=== PATIENT | male | born 1980 | race Caucasian/White ===

== ENCOUNTER 2017-04-30 10:01 | Observation (INO) | payer OTHER ==
--- NOTE | 2017-04-26 09:03 | PDGENHP ---
History and Physical - Chief Complaint Right Hip Pain - History of Present Illness Diagnosis: 1. Bilateral~Femoroacetabular impingement (ESTRELLA) Mixed type, with~resultant labral tear, R >> symptoms than L 2. Bilateral~Early Osteoarthritis HISTORY OF PRESENT ILLNESS: Kirtiis a 37 y.o.~~~active male~who I have had the pleasure to consult on today. I have enjoyed meeting him. He~lives in [place], [place]. 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 ~He~is ; he~has 1~child (5 yo girl). ~Earnest Ninoenjoys taking care of his daughter, travelling internationally - does not play sports anymore because of hips (was soccer). Earnest's right~hip pain started 2013, with some~recalled trauma or injury, and with no~previous complaints. Kiritdoes not have~a known history of hip dysplasia. Got better for about 2 years, but now with weight gain has increased pain. R hip is more painful than L, but L is "annoying". Originally saw in 2013 for R hip and did PT at that time. Presentation today is of anterior bilateral~hip pain - in the groin. ~The hip does not~wake him~at night and does~click and catch on him. Sitting can be uncomfortable~for him. Kirtidoes~report suffering from lower back pain episodes. Kirtihas~participated in physical therapy and has not~tried other conservative measures including. He~has~not received sufficient symptomatic improvement. Kirtihas not~utilized medication for pain management. Kirtihas used medication for 2 weeks~- percocet and tramadol - but these are for his back ( being treated for LBP by Dr. Prince) Kirtiunderstands that he~has a hip and pelvis problem which should be researched and wishes to get a better understanding of his~hip status, followed by an establishment of a treatment strategy, hoping he~would be able to get back to his~well being active life. History: Past medical history: ~ Patient ~has a past medical history of Allergy and Anxiety. He also has no past medical history of Asthma; Blood transfusion; CHF (congestive heart failure) ( HC code); Emphysema of lung (HC code); Heart murmur; Immune deficiency disorder (HC code); Meningitis; Myocardial infarction; Sickle cell anemia (HC code); Tuberculosis; or Ulcer (HC code). Relevant familial history: None which is relevant Past surgical history: R knee scope - meniscal debridement, R ankle ORIF, sinus surgery. Kirtidenies problematic issues with general anesthesia in the past. I have reviewed, verified and agree with the past medical, surgical, family and social history. Current Medications:~has a current medication list which includes the following prescription(s): alprazolam, amoxicillin-clavulanate, cephalexin, diclofenac sodium 1%, meloxicam, multivitamin, oxycodone-acetaminophen, and tramadol. ALLERGIES:~is allergic to no known drug allergies. Objective: Physical Examination: Kirtiis 5~feet 11~inches tall and weighs 238~Lbs. Kirtiis AAO x3; he~is well -nourished, in NAD. Skin is warm and dry. ~Breathing is non-labored. ~CV with RRR by pulse. Abdomen is soft, NTND. Currently, he~walks with a normal~gait. Trendelenburg sign is negative~and proprioception is reduced, both~sides. He~presents with no~signs of joint laxity. Beightons Score: 0 Not active looking. Lower spine examination is negative~for sciatic or femoral nerve irritation with negative~SLR &~femoral stretch tests. Range of motion of the spine is normal~for flexion, extension, and rotations,~with~associated pain. Strength, Sensation and pulses are normal - bilaterally Ankles and knees exams are normal~and no~mal-alignment is evident. He~has~left~0.5~cm short leg length discrepancy. Thigh circumference is symmetric~with no evidence for muscle atrophy~on both~ sides. Hip ROM (degrees): FL ER At 90~hip FL IR At 90~hip FL AB AD EX IR Neutral hip ER Neutral hip R 90 40 5 35 5 5 30 45 L 90 40 5 35 5 5 30 45 Specific hip and pelvis tests: Impingement Test COOKIE Roll Add. Longus R +++ +++ Negative Negative L +++ +++ Negative ++ Glut. Med ITB Posterior Imp R Negative 4+/5 strength Negative 4+/5 strength +++ L Negative 4+/5 strength Negative 5/5 strength +++ Squeeze test measured normal Bony Symphysis pubis is painful~to touch while concentric activity of the rectus abdominis, does not~produce pain at its insertion. Ilio Psos specific tests are negative for pain during cycling for both hips HF has no pain both hips. Anterior and lateral~capsule tenderness bilaterally. Greater trochanteric burse is painful~on both hips. Piriformis tests: FAIR is negative, with no~local signs of neuritis related to sciatic nerve. SIJs examination is produces pain on both sides~with normal~COOKIE in relation and local tenderness. Hamstrings tests are positive~functional contraction and positive~tendinopathy the left hip. On a daily basis, the following percentages reflect Earnest's overall total pain: Deep hip: 65% Greater troch: 15% SI: 20% Imaging: Radiology studies which I have personally reviewed, analyzed and measured are below: XR: AP of the hip and pelvis: Performed in a good~technique Coccyx to pubic symphysis distance 1.3~cm. 5~degrees caudal [place] Lines are preserved. No~Pathological signs are seen in the Symphysis Pubis. No~Pathological signs are seen at the Ischial tuberosity. ~ Compared to XR AP Pelvis taken on 01/13/14 - shows no significant progression in joint space narrowing or other significant differences. ~ Specific measurements show: NSA~ LCE Sourcil~Angle Sharp's angle Lat. Cam Lat. Pincer C.Over~sign Head~Coverage % ATDmm R 149 39 2 41 N + N 83 + L 146 43 -1 35 N + 11 o'clock 87 + Pos. wall sign ISS NAD ~~Dysplasia Comments R Negative Negative 21 mm Negative L Negative Negative 13 mm Negative Sclerosis Sup. Lat. OA Cysts Joint Space-WBZ Joint Space-Medial R ++ + Negative 2.8~mm 4.1~mm L + + + 2.8 mm 4.2~mm X Table lateral: Anterior cam lesion is seen~on both hips. Alpha Angle: ~ Right 61~dergrees Left 69~degrees MRI R hip shows: 12/27/16 - Femoral acetabular impingement, right hip, mixed type, with secondary nondisplaced tear of the anterior superior acetabular labrum. Small pincer type labrum, sub chondral cyst. MRI L hip shows: 12/27/16 - Femoral acetabular impingement, left hip, mixed type. Associated degenerative maceration and partial tearing with chondral thinning anterior superior left hip joint. Small pincer type labrum, sub chondral cyst. Impression and plan: Kirtiis a 37 y.o.~active male~suffering from symptomatic bilateral (R>L) hip pain due to Bilateral~Femoroacetabular impingement (ESTRELLA) Mixed type, and early OA causing significant disability to him~and altering his~sport and life activities. Physical examination, imaging, and his~story correspond with the diagnosis mentioned above. I explained that femoroacetabular impingement (ESTRELLA) arises due to a bony or soft tissue conflict between the femur (ball) and acetabulum (socket) caused by an abnormality in the shape of the hip joint. Over time, repetitive impingement can result in damage to the labrum and adjacent surface cartilage within the socket, ultimately giving rise to progressive osteoarthritis of the hip. I explained that although a labral tear can be a source of pain, it is rarely the root of the problem and typically occurs secondary to an underlying abnormality in the shape and mechanics of the hip joint. ~ I reviewed conservative treatment options for ESTRELLA including activity modification to avoid positions of impingement, physical therapy, non-steroidal anti-inflammatory medications, and various injections (corticosteroid and PRP) aimed at reducing inflammation in the hip joint or/and preventing dynamic impingement. PRP injections may promote healing and reduce symptoms in certain cases but it will not repair chronically damaged tissue. Although these measures may help to buy time and reduce current level of symptoms, they are not a definitive solution to the problem given the underlying abnormality in the shape of the hip joint. Patients who have failed conservative management and continue to experience symptoms are candidates for hip arthroscopy, a minimally invasive surgery that can definitively address the underlying problem. Hip arthroscopy typically includes treating the labrum with either repair or reconstruction of the torn labrum; as well as addressing the underlying abnormalities by restoring the normal shape to the hip joint. ~If the cartilage is damaged a Microfracture surgical procedure may also be necessary to help stimulate the growth of fibrocartilage. ~If a patient requires a labral reconstruction or a Microfracture, the initial rehabilitation from the surgery may take longer, but the bed bug exterminator results are typically favorable. I explained that although a labral tear can be a source of pain, it is rarely the root of the problem and typically occurs secondary to an underlying abnormality in the shape and mechanics of the hip joint. Conservative management with rest, activity modification, and PRP injections may promote healing and reduce symptoms in certain cases. When these measures are inadequate , hip arthroscopy is typically performed to repair or reconstruct the torn labrum and address the underlying abnormality in the shape of the hip joint. ~ Hip arthroscopy typically includes treating the labrum with either debridement, repair, or reconstruction of the torn labrum; as well as addressing the underlying abnormalities by restoring the normal shape to the hip joint. ~If the cartilage is damaged a Microfracture procedure may also be necessary to help stimulate the growth of fibrocartilage. ~If a patient requires a labral reconstruction or a Microfracture the initial rehabilitation from the surgery may take longer, but the bed bug exterminator results are typically favorable. We explained that a hip preservation procedure (arthroscopy)~might serve as a bridging procedure to try and buy as much time as possible, keeping his~confederated coos joint before joint replacement would be unavoidable. With that in mind, the outlined treatment options are: (1) To wait for THR utilizing pain medication, intra articular injections~(such as PRP)~and lifestyle modification (to avoid or reduce symptoms); (2) THR now as an end-point procedure understanding the life-modifications associated with this procedure regarding activity level; or (3) Hip preservation surgery, specifically hip arthroscopy, to address labral, cartilage and bony pathology (with the possibility of reconstructing the labrum if needed). This last option comes~with the understanding of what is outlined above, specifically that this may not work as it usually does with biologically more preserved joints, and that based on his~age, gender, and joint characteristics, the results are less reproducible than in younger subjects. Additionally, this surgery does~not eliminate the possibility for future THR. If the hip preservation technique fails~to yield the expected results, THR can be done promptly. HOWEVER, due to his young age and joint's status I still believe that hip preservation surgery would be the best treatment option at this stage. Earnest~will review the info presented. In order to obtain more detailed information regarding the alignment, orientation, and shape of the bony hip and pelvis I will order a CT scan to be performed. The results of the CT scan, including femoral torsion and acetabular version measured values and 3D images, will aid me in deciding on the best treatment strategy and surgical pre-planning. Earnest will return for a follow-up visit after his CT has been performed. Earnest~is happy with this plan. I have also supplied him~with handouts, outlining the expected surgical treatment and rehab involved. I wish~Earnest~all the best, ~~ Dalia Olguin MD History Information - Allergies/Home Medication List Allergies/Adverse Reactions: No Known Allergies Allergy (Unverified 04/06/17 15:26) Home Medications: NK [No Known Home Meds] 04/06/17 [Last Taken Unknown] I have personally reviewed and updated: medical history - Social History Smoking Status: Never smoked Review of Systems Review of Systems: Physical Exam Physical Exam:
[2017-04-30] MEDS ORDERED: ceFAZolin 2 GM/SWFI 2 GM/20 ML SYR IVP ONE (10:30)
[2017-04-30] MEDS ORDERED: PREGABALIN 150 MG CAP PO ONE (10:30)
[2017-04-30] MEDS ORDERED: ACETAMINOPHEN 500 MG TAB PO ONE (10:30)
[2017-04-30] MEDS ORDERED: LIDOCAINE 1% 2 ML INJ ID PRN (10:31)
[2017-04-30] MEDS ORDERED: LR 1,000 ML IV ONE (10:31)
[2017-04-30] MEDS ORDERED: BUPIVACAINE 0.25% 30 ML SDV ONE (11:43)
[2017-04-30] MEDS ORDERED: EPINEPHrine 30 MG/30 ML MDV (0.1 MG/0.1 ML) ONE (11:45)
[2017-04-30] MEDS ORDERED: MIDAZOLAM 2 MG/2 ML VIAL ONE (13:28)
[2017-04-30] MEDS ORDERED: MIDAZOLAM 2 MG/2 ML VIAL IVP ONE (13:28)
--- NOTE | 2017-04-30 13:29 | PDANEPAE ---
ANE History of Present Illness r hip pain ANE Past Medical History - Cardiovascular History Hx Hypertension: No Hx Arrhythmias: No Hx Chest Pain: No Hx Coronary Artery / Peripheral Vascular Disease: No Hx CHF / Valvular Disease: No Hx Palpitations: No - Pulmonary History Hx COPD: No Hx Asthma/Reactive Airway Disease: No Hx Recent Upper Respiratory Infection: No Hx Oxygen in Use at Home: No Hx Sleep Apnea: No Sleep Apnea Screening Result - Last Documented: Positive Pulmonary History Comment: STEVEN TRIGGERS HAS BEEN RECOMMENDED TO GET SLEEP STUDY. CHRONIC SINUSITIS - Neurologic History Hx Cerebrovascular Accident: No Hx Seizures: No Hx Dementia: No - Endocrine History Hx Diabetes: No - Renal History Hx Renal Disorders: No - Liver History Hx Hepatic Disorders: No - Neurological & Psychiatric Hx Hx Neurological and Psychiatric Disorders: No - Cancer History Hx Cancer: No - Congenital Disorder History Hx Congenital Disorders: No - GI History Hx Gastrointestinal Disorders: No - Other Health History Other Health History: CHRONIC SINUSITIS. 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 RT KNEE SCOPE. SINUS 2015 ANE Review of Systems Review of Systems: - Exercise capacity METS (RN): 4 METS ANE Patient History - Allergies Allergies/Adverse Reactions: No Known Allergies Allergy (Unverified 04/06/17 15:26) - Home Medications Home Medications: NK [No Known Home Meds] 04/06/17 [Last Taken Unknown] - NPO status NPO Since - Liquids (Date): 04/29/17 NPO Since - Liquids (Time): 19:00 NPO Since - Solids (Date): 04/29/17 NPO Since - Solids (Time): 19:00 - Smoking Hx Smoking Status: Never smoked ANE Labs/Vital Signs - Vital Signs Blood Pressure: 117/70 Heart Rate: 62 Respiratory Rate: 18 O2 Sat (%): 97 Height: 180.34 cm Weight: 104.326 kg ANE Physical Exam - Airway Neck exam: FROM Mallampati Score: Class 1 Mouth exam: normal dental/mouth exam - Pulmonary Pulmonary: no respiratory distress - Cardiovascular Cardiovascular: regular rate and rhythym - ASA Status ASA Status: I ANE Anesthesia Plan Anesthesia Plan: general endotracheal anesthesia
[2017-04-30] MEDS ORDERED: fentaNYL 100 MCG/2 ML INJ ONE ×4 (13:33→18:12)
[2017-04-30] MEDS ORDERED: LIDOCAINE 2% 5 ML SDV ONE (13:33)
[2017-04-30] MEDS ORDERED: HYDROmorphONE/DILAUDID 2 MG/ML INJ ONE ×2 (13:33→18:53)
[2017-04-30] MEDS ORDERED: DEXAMETHASONE 4 MG/ML VIAL ONE (13:33)
[2017-04-30] MEDS ORDERED: ONDANSETRON 4 MG/2 ML VIAL ONE (13:33)
[2017-04-30] MEDS ORDERED: PROPOFOL 200 MG/20 ML VIAL ONE (13:34)
[2017-04-30] MEDS ORDERED: PROPOFOL/EMULSION 500 MG/50 ML BOTTLE IV ONE (13:34)
[2017-04-30] MEDS ORDERED: ONDANSETRON 4 MG/2 ML VIAL IVP PRN ×2 (15:50→18:45)
[2017-04-30] MEDS ORDERED: NALOXONE HCL 0.4 MG/ML INJ IVP PRN ×2 (15:50→18:50)
[2017-04-30] MEDS ORDERED: PROMETHAZINE HCL 25 MG/ML INJ IVP PRN (15:50)
[2017-04-30] MEDS ORDERED: HYDROmorphONE/DILAUDID 1 MG/ML INJ IVP PRN (15:50)
[2017-04-30] MEDS ORDERED: OXYCODONE/APAP 5/325 TAB PO PRN (15:50)
--- NOTE | 2017-04-30 17:07 | POSTANESTH ---
Post Anesthetic Evaluation Cardiovascular Status: Normal, Stable Respiratory Status: Normal, Stable Level of Consciousness/Mental Status: Can Participate in Eval Pain Control: Adequate, Prn Tx Ordered Nausea/Vomiting Control: Adequate, Prn Tx Ordered Complications Possibly Related to Anesthesia: None Noted
[2017-04-30] MEDS ORDERED: OXYCODONE/APAP 5/325 TAB ONE ×2 (17:25→17:33)
[2017-04-30] MEDS: fentaNYL 100 MCG/2 ML INJ IVP PRN ×3 (17:27→18:18)
[2017-04-30] MEDS ORDERED: POLYETHYLENE GLYCOL 3350 17 GM PKT PO PRN (18:45)
[2017-04-30] MEDS ORDERED: NS 1,000 ML IV SCH (18:45)
[2017-04-30] MEDS ORDERED: ACETAMINOPHEN 325 MG TAB PO PRN (18:45)
[2017-04-30] MEDS ORDERED: MAGNESIUM HYDROXIDE 30 ML UDCUP PO PRN (18:45)
[2017-04-30] MEDS ORDERED: DIAZEPAM 2 MG TAB PO PRN (18:45)
[2017-04-30] MEDS ORDERED: LACTULOSE 20 GM/30 ML UDCUP PO PRN (18:45)
[2017-04-30] MEDS ORDERED: BISACODYL 10 MG SUPP PR PRN (18:45)
[2017-04-30] MEDS ORDERED: ONDANSETRON DISINTEGRATING 4 MG TAB PO PRN (18:45)
[2017-04-30] MEDS ORDERED: HYDROmorphONE/DILAUDID 6 MG/30 ML PCA IV PRN (18:50)
[2017-04-30] MEDS: NAPROXEN SODIUM 220 MG TAB PO SCH (20:49)
[2017-04-30 21:03] VITALS: O2SAT 94
[2017-04-30] MEDS: SENNOSIDES/DOCUSATE SODIUM TAB PO SCH (21:14)
[2017-05-01] MEDS: OXYCODONE/APAP 5/325 TAB PO PRN ×2 (01:04→07:46)
[2017-05-01 07:43] VITALS: BP 131/73; PULSE 93; RESP 16; TEMP 98.8
[2017-05-01] MEDS: NAPROXEN SODIUM 220 MG TAB PO SCH (07:47)
[2017-05-01] MEDS: SENNOSIDES/DOCUSATE SODIUM TAB PO SCH (07:47)
== END 2017-05-01 13:12 | disposition home or self-care (01) ==
LOC: FSGY 10:01 → F3N 18:37
PROVIDERS: ADMIT Orthopaedic Surgery Sports Medicine; ATTEND Orthopaedic Surgery Sports Medicine
PROC: 0SB94ZZ Excision of Right Hip Joint, Percutaneous Endoscopic Approach (ICD-10-PCS; principal; 2017-04-30 11:30)
PROC: 0SQ94ZZ Repair Right Hip Joint, Percutaneous Endoscopic Approach (ICD-10-PCS; principal; 2017-04-30 11:30)
DX: M25.851 Other specified joint disorders, right hip (principal); M16.11 Unilateral primary osteoarthritis, right hip; M25.551 Pain in right hip; F41.9 Anxiety disorder, unspecified; M21.70 Unequal limb length (acquired), unspecified site; M25.852 Other specified joint disorders, left hip
CPT/HCPCS: 29914; 29916; 76001; 97161; 97165; 97530; 97535; G0378; C1713; J0171; J0690; J1100; J1170; J2250; J2405; J2704; J3010

== ENCOUNTER 2017-06-22 09:47 | Observation (INO) | payer OTHER ==
--- NOTE | 2017-06-21 21:20 | PDGENHP ---
History and Physical - Chief Complaint Left Hip Pain - History of Present Illness 1. Bilateral~Femoroacetabular impingement (ESTRELLA) Mixed type, with~resultant labral tear, R >> symptoms than L 2. Bilateral~Early Osteoarthritis HISTORY OF PRESENT ILLNESS: Kirtiis a 37 y.o.~~~active male~who I have had the pleasure to consult on today. I have enjoyed meeting him. He~lives in [place], [place]. 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 ~He~is ; he~has 1~child (5 yo girl). ~Earnest Ninoenjoys taking care of his daughter, travelling internationally - does not play sports anymore because of hips (was soccer). Earnest's right~hip pain started 2013, with some~recalled trauma or injury, and with no~previous complaints. Kirtidoes not have~a known history of hip dysplasia. Got better for about 2 years, but now with weight gain has increased pain. R hip is more painful than L, but L is "annoying". Originally saw in 2013 for R hip and did PT at that time. Presentation today is of anterior bilateral~hip pain - in the groin. ~The hip does not~wake him~at night and does~click and catch on him. Sitting can be uncomfortable~for him. Kirtidoes~report suffering from lower back pain episodes. Kirtihas~participated in physical therapy and has not~tried other conservative measures including. He~has~not received sufficient symptomatic improvement. Kirtihas not~utilized medication for pain management. Kirtihas used medication for 2 weeks~- percocet and tramadol - but these are for his back ( being treated for LBP by Dr. Prince) Kirtiunderstands that he~has a hip and pelvis problem which should be researched and wishes to get a better understanding of his~hip status, followed by an establishment of a treatment strategy, hoping he~would be able to get back to his~well being active life. History: Past medical history: ~ Patient ~has a past medical history of Allergy and Anxiety. He also has no past medical history of Asthma; Blood transfusion; CHF (congestive heart failure) ( HC code); Emphysema of lung (HC code); Heart murmur; Immune deficiency disorder (HC code); Meningitis; Myocardial infarction; Sickle cell anemia (HC code); Tuberculosis; or Ulcer (HC code). Relevant familial history: None which is relevant Past surgical history: R knee scope - meniscal debridement, R ankle ORIF, sinus surgery. Kirtidenies problematic issues with general anesthesia in the past. I have reviewed, verified and agree with the past medical, surgical, family and social history. Current Medications:~has a current medication list which includes the following prescription(s): alprazolam, amoxicillin-clavulanate, cephalexin, diclofenac sodium 1%, meloxicam, multivitamin, oxycodone-acetaminophen, and tramadol. ALLERGIES:~is allergic to no known drug allergies. Objective: Physical Examination: Kirtiis 5~feet 11~inches tall and weighs 238~Lbs. Kirtiis AAO x3; arthur~is well -nourished, in NAD. Skin is warm and dry. ~Breathing is non-labored. ~CV with RRR by pulse. Abdomen is soft, NTND. Currently, he~walks with a normal~gait. Trendelenburg sign is negative~and proprioception is reduced, both~sides. He~presents with no~signs of joint laxity. Beightons Score: 0 Not active looking. Lower spine examination is negative~for sciatic or femoral nerve irritation with negative~SLR &~femoral stretch tests. Range of motion of the spine is normal~for flexion, extension, and rotations,~with~associated pain. Strength, Sensation and pulses are normal - bilaterally Ankles and knees exams are normal~and no~mal-alignment is evident. He~has~left~0.5~cm short leg length discrepancy. Thigh circumference is symmetric~with no evidence for muscle atrophy~on both~ sides. Hip ROM (degrees): FL ER At 90~hip FL IR At 90~hip FL AB AD EX IR Neutral hip ER Neutral hip R 90 40 5 35 5 5 30 45 L 90 40 5 35 5 5 30 45 Specific hip and pelvis tests: Impingement Test COOKIE Roll Add. Longus R +++ +++ Negative Negative L +++ +++ Negative ++ Glut. Med ITB Posterior Imp R Negative 4+/5 strength Negative 4+/5 strength +++ L Negative 4+/5 strength Negative 5/5 strength +++ Squeeze test measured normal Bony Symphysis pubis is painful~to touch while concentric activity of the rectus abdominis, does not~produce pain at its insertion. Ilio Psos specific tests are negative for pain during cycling for both hips HF has no pain both hips. Anterior and lateral~capsule tenderness bilaterally. Greater trochanteric burse is painful~on both hips. Piriformis tests: FAIR is negative, with no~local signs of neuritis related to sciatic nerve. SIJs examination is produces pain on both sides~with normal~COOKIE in relation and local tenderness. Hamstrings tests are positive~functional contraction and positive~tendinopathy the left hip. On a daily basis, the following percentages reflect Earnest's overall total pain: Deep hip: 65% Greater troch: 15% SI: 20% Imaging: Radiology studies which I have personally reviewed, analyzed and measured are below: XR: AP of the hip and pelvis: Performed in a good~technique Coccyx to pubic symphysis distance 1.3~cm. 5~degrees caudal [place] Lines are preserved. No~Pathological signs are seen in the Symphysis Pubis. No~Pathological signs are seen at the Ischial tuberosity. ~ Compared to XR AP Pelvis taken on 01/13/14 - shows no significant progression in joint space narrowing or other significant differences. ~ Specific measurements show: NSA~ LCE Sourcil~Angle Sharp's angle Lat. Cam Lat. Pincer C.Over~sign Head~Coverage % ATDmm R 149 39 2 41 N + N 83 + L 146 43 -1 35 N + 11 o'clock 87 + Pos. wall sign ISS NAD ~~Dysplasia Comments R Negative Negative 21 mm Negative L Negative Negative 13 mm Negative Sclerosis Sup. Lat. OA Cysts Joint Space-WBZ Joint Space-Medial R ++ + Negative 2.8~mm 4.1~mm L + + + 2.8 mm 4.2~mm X Table lateral: Anterior cam lesion is seen~on both hips. Alpha Angle: ~ Right 61~dergrees Left 69~degrees MRI R hip shows: 12/27/16 - Femoral acetabular impingement, right hip, mixed type, with secondary nondisplaced tear of the anterior superior acetabular labrum. Small pincer type labrum, sub chondral cyst. MRI L hip shows: 12/27/16 - Femoral acetabular impingement, left hip, mixed type. Associated degenerative maceration and partial tearing with chondral thinning anterior superior left hip joint. Small pincer type labrum, sub chondral cyst. Impression and plan: Kirtiis a 37 y.o.~active male~suffering from symptomatic bilateral (R>L) hip pain due to Bilateral~Femoroacetabular impingement (ESTRELLA) Mixed type, and early OA causing significant disability to him~and altering his~sport and life activities. Physical examination, imaging, and his~story correspond with the diagnosis mentioned above. I explained that femoroacetabular impingement (ESTRELLA) arises due to a bony or soft tissue conflict between the femur (ball) and acetabulum (socket) caused by an abnormality in the shape of the hip joint. Over time, repetitive impingement can result in damage to the labrum and adjacent surface cartilage within the socket, ultimately giving rise to progressive osteoarthritis of the hip. I explained that although a labral tear can be a source of pain, it is rarely the root of the problem and typically occurs secondary to an underlying abnormality in the shape and mechanics of the hip joint. ~ I reviewed conservative treatment options for ESTRELLA including activity modification to avoid positions of impingement, physical therapy, non-steroidal anti-inflammatory medications, and various injections (corticosteroid and PRP) aimed at reducing inflammation in the hip joint or/and preventing dynamic impingement. PRP injections may promote healing and reduce symptoms in certain cases but it will not repair chronically damaged tissue. Although these measures may help to buy time and reduce current level of symptoms, they are not a definitive solution to the problem given the underlying abnormality in the shape of the hip joint. Patients who have failed conservative management and continue to experience symptoms are candidates for hip arthroscopy, a minimally invasive surgery that can definitively address the underlying problem. Hip arthroscopy typically includes treating the labrum with either repair or reconstruction of the torn labrum; as well as addressing the underlying abnormalities by restoring the normal shape to the hip joint. ~If the cartilage is damaged a Microfracture surgical procedure may also be necessary to help stimulate the growth of fibrocartilage. ~If a patient requires a labral reconstruction or a Microfracture, the initial rehabilitation from the surgery may take longer, but the usp results are typically favorable. I explained that although a labral tear can be a source of pain, it is rarely the root of the problem and typically occurs secondary to an underlying abnormality in the shape and mechanics of the hip joint. Conservative management with rest, activity modification, and PRP injections may promote healing and reduce symptoms in certain cases. When these measures are inadequate , hip arthroscopy is typically performed to repair or reconstruct the torn labrum and address the underlying abnormality in the shape of the hip joint. ~ Hip arthroscopy typically includes treating the labrum with either debridement, repair, or reconstruction of the torn labrum; as well as addressing the underlying abnormalities by restoring the normal shape to the hip joint. ~If the cartilage is damaged a Microfracture procedure may also be necessary to help stimulate the growth of fibrocartilage. ~If a patient requires a labral reconstruction or a Microfracture the initial rehabilitation from the surgery may take longer, but the technician terminal and repeater results are typically favorable. We explained that a hip preservation procedure (arthroscopy)~might serve as a bridging procedure to try and buy as much time as possible, keeping his~ruby joint before joint replacement would be unavoidable. With that in mind, the outlined treatment options are: (1) To wait for THR utilizing pain medication, intra articular injections~(such as PRP)~and lifestyle modification (to avoid or reduce symptoms); (2) THR now as an end-point procedure understanding the life-modifications associated with this procedure regarding activity level; or (3) Hip preservation surgery, specifically hip arthroscopy, to address labral, cartilage and bony pathology (with the possibility of reconstructing the labrum if needed). This last option comes~with the understanding of what is outlined above, specifically that this may not work as it usually does with biologically more preserved joints, and that based on his~age, gender, and joint characteristics, the results are less reproducible than in younger subjects. Additionally, this surgery does~not eliminate the possibility for future THR. If the hip preservation technique fails~to yield the expected results, THR can be done promptly. HOWEVER, due to his young age and joint's status I still believe that hip preservation surgery would be the best treatment option at this stage. Earnest~will review the info presented. In order to obtain more detailed information regarding the alignment, orientation, and shape of the bony hip and pelvis I will order a CT scan to be performed. The results of the CT scan, including femoral torsion and acetabular version measured values and 3D images, will aid me in deciding on the best treatment strategy and surgical pre-planning. Earnest will return for a follow-up visit after his CT has been performed. Earnest~is happy with this plan. I have also supplied him~with handouts, outlining the expected surgical treatment and rehab involved. I wish~Earnest~all the best, ~~ Dalia Olguin MD History Information - Allergies/Home Medication List Allergies/Adverse Reactions: No Known Allergies Allergy (Verified 06/11/17 14:05) Home Medications: NK [No Known Home Meds] 06/11/17 [Last Taken Unknown] I have personally reviewed and updated: medical history - Social History Smoking Status: Never smoked Review of Systems Review of Systems: Physical Exam Physical Exam:
[2017-06-22] MEDS ORDERED: ceFAZolin 2 GM/SWFI 2 GM/20 ML SYR IVP ONE (10:05)
[2017-06-22] MEDS ORDERED: PREGABALIN 150 MG CAP PO ONE (10:05)
[2017-06-22] MEDS ORDERED: ACETAMINOPHEN 500 MG TAB PO ONE (10:05)
[2017-06-22] MEDS ORDERED: LR 1,000 ML IV ONE (10:06)
[2017-06-22] MEDS ORDERED: BUPIVACAINE 0.25% 30 ML SDV ONE (10:15)
[2017-06-22] MEDS ORDERED: EPINEPHrine 30 MG/30 ML MDV (0.1 MG/0.1 ML) ONE (10:16)
--- NOTE | 2017-06-22 11:01 | PDANEPAE ---
ANE History of Present Illness left, hip scope ANE Past Medical History - Cardiovascular History Hx Hypertension: No Hx Arrhythmias: No Hx Chest Pain: No Hx Coronary Artery / Peripheral Vascular Disease: No Hx CHF / Valvular Disease: No Hx Palpitations: No - Pulmonary History Hx COPD: No Hx Asthma/Reactive Airway Disease: No Hx Recent Upper Respiratory Infection: No Hx Oxygen in Use at Home: No Hx Sleep Apnea: No Sleep Apnea Screening Result - Last Documented: Negative Pulmonary History Comment: CHRONIC SINUSITIS - Neurologic History Hx Cerebrovascular Accident: No Hx Seizures: No Hx Dementia: No - Endocrine History Hx Diabetes: No - Renal History Hx Renal Disorders: No - Liver History Hx Hepatic Disorders: No - Neurological & Psychiatric Hx Hx Neurological and Psychiatric Disorders: No - Cancer History Hx Cancer: No - Congenital Disorder History Hx Congenital Disorders: No - GI History Hx Gastrointestinal Disorders: No - Other Health History 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 RT ANKLE RECONSTRUCTION. RT KNEE SCOPE. SINUS 2015 ANE Review of Systems Review of systems is: negative Review of Systems: - Exercise capacity Exercise capacity: >=4 METS METS (RN): 4 METS ANE Patient History - Allergies Allergies/Adverse Reactions: No Known Allergies Allergy (Verified 06/11/17 14:05) - Home Medications Home Medications: NK [No Known Home Meds] 06/11/17 [Last Taken Unknown] - NPO status NPO Status: no food or drink >8 hours NPO Since - Liquids (Date): 06/22/17 NPO Since - Liquids (Time): 08:00 NPO Since - Solids (Date): 06/21/17 NPO Since - Solids (Time): 20:00 - Anes Hx Anes Hx: no prior problems - Smoking Hx Smoking Status: Never smoked - Alcohol Use Alcohol Use: Occasionally - Family Anes Hx Family Anes Hx: none Family Hx Anesthesia Complications: none ANE Labs/Vital Signs - Vital Signs Vital Signs: reviewed preoperatively; see RN documention for details Blood Pressure: 126/80 Heart Rate: 71 Respiratory Rate: 16 O2 Sat (%): 93 Height: 180.34 cm Weight: 104.326 kg ANE Physical Exam - Airway Neck exam: FROM Mallampati Score: Class 2 Mouth exam: normal dental/mouth exam - Pulmonary Pulmonary: no respiratory distress - Cardiovascular Cardiovascular: regular rate and rhythym - ASA Status ASA Status: I ANE Anesthesia Plan Anesthesia Plan: general endotracheal anesthesia
[2017-06-22] MEDS ORDERED: MIDAZOLAM 2 MG/2 ML VIAL IVP ONE (11:03)
[2017-06-22] MEDS ORDERED: LIDOCAINE 2% 5 ML SDV ONE (11:23)
[2017-06-22] MEDS ORDERED: ROCURONIUM 100 MG/10 ML VIAL ONE (11:23)
[2017-06-22] MEDS ORDERED: fentaNYL 100 MCG/2 ML INJ ONE ×6 (11:23→17:06)
[2017-06-22] MEDS ORDERED: PROPOFOL 200 MG/20 ML VIAL ONE ×2 (11:23→16:37)
[2017-06-22] MEDS ORDERED: DEXAMETHASONE 4 MG/ML VIAL ONE (11:58)
[2017-06-22] MEDS ORDERED: ONDANSETRON 4 MG/2 ML VIAL ONE (11:58)
[2017-06-22] MEDS ORDERED: LABETALOL HCL 5 MG/ML 20 ML MDV ONE (12:56)
[2017-06-22] MEDS ORDERED: KETOROLAC 30 MG/1 ML SDV ONE (14:48)
[2017-06-22] MEDS ORDERED: SUGAMMADEX SODIUM 200 MG/2 ML VIAL IVP ONE (14:48)
[2017-06-22] MEDS ORDERED: ceFAZolin 1 GM VIAL ONE ×2 (15:05)
[2017-06-22] MEDS ORDERED: oxyCODONE IR 5 MG TAB PO PRN (16:50)
[2017-06-22] MEDS ORDERED: NALOXONE HCL 0.4 MG/ML INJ IVP PRN (16:50)
[2017-06-22] MEDS ORDERED: MEPERIDINE 25 MG/ML SYR IVP PRN (16:50)
[2017-06-22] MEDS ORDERED: ALBUTEROL 3 ML DEYVIAL IH PRN (16:50)
[2017-06-22] MEDS ORDERED: PROMETHAZINE HCL 25 MG/ML INJ IVP PRN (16:50)
[2017-06-22] MEDS ORDERED: DIAZEPAM 5 MG/ML 1 ML SYR IVP PRN (16:50)
[2017-06-22] MEDS ORDERED: ONDANSETRON 4 MG/2 ML VIAL IVP PRN (16:50)
[2017-06-22] MEDS ORDERED: HYDROmorphONE/DILAUDID 2 MG/ML INJ IVP PRN (16:50)
[2017-06-22] MEDS ORDERED: ACETAMINOPHEN 500 MG TAB PO PRN (16:50)
[2017-06-22] MEDS: fentaNYL 100 MCG/2 ML INJ IVP PRN ×2 (17:07→17:26)
[2017-06-22] MEDS ORDERED: DIAZEPAM 2 MG TAB PO PRN (17:33)
[2017-06-22] MEDS ORDERED: ONDANSETRON DISINTEGRATING 4 MG TAB PO PRN (17:33)
[2017-06-22] MEDS ORDERED: HYDROmorphone HCL/NS 0.5 MG/ML SYR IVP PRN (17:36)
[2017-06-22] MEDS ORDERED: diphenhydrAMINE 25 MG CAP PO PRN (17:37)
[2017-06-22] MEDS ORDERED: DIAZEPAM 5 MG/ML 1 ML SYR ONE (17:49)
--- NOTE | 2017-06-22 18:48 | SUROPNOTE ---
JUHI Operative Report - Surgery OPERATION NOTE~on Earnest Friend Surgery was performed at: [facility] Date of Surgery: 06/22/2017 Diagnosis: 1. Left~Femoroacetabular impingement (ESTRELLA) Mixed type, with~resultant labral tear 2. Left~Early Osteoarthritis Operation:~Left~Arthroscopic Acetabular rim resection (pincer), Labral repair, Debridement of loose cartilage flap + micro fracture of acetabulum, CAM resection, Synovectomy, Capsular repair Indication: Failure to obtain satisfactory results with long standing conservative measures. Surgeon: ~~~~~~~~~~Brayan Gautam MD ~ Kennel Aide:~~~~~~~~~~~~~Jolynn Olguin MD (no qualified resident was able to assist with this case) Anaesthetic:~~~~~General Findings~ Left~Hip: Labrum: Torn, fryad, 10 to 3 Acetabulum: Cartilage damage grade 4/OA/cam flap~extending around chondrolabral junction, circumferentially, from 10~to 3, 30% rim to acatabular fossa Fovea: Partial tear of LT Femoral Head: cartilage damage grade: 1~frayed Synovium: mild moderate~synovitis Peripheral Compartment: Anterolateral CAM between 11~O'clock superiorly and 6~O' clock anteriorly Procedure: Supine on operating table. General anaesthetic. Antibiotics given. Standard traction set up, without perineal post. A spinal needle was guided to the femoral head neck junction and traction gradually applied with the joint vented. Local anesthetic infiltrated into the skin around the portals. Once 14mm of distraction was achieved the hip needle was then passed into the joint staying as close to the femoral head as possible. A Nytenol wire was passed through the hip needle ensuring that it passed all the way to the fovea to confirm central placement of the needle. Skin was incised and then the portals sequentially dilated to 7 mm. Switching stick inserted and 30 scope passed over the top. Under dry scope conditions the anterior portal was created by passing the hip needle into the joint under direct vision. Again this was dilated up to 7 mm and the slotted canule was inserted. The saline was then turned on and the joint irrigated. The joint was carefully inspected and photographed with findings as above. The arthroscope was switched to the 70 scope to complete the inspection. A longitudinal intra portal capsulotomy was then performed using chitina blade and the 50 Arthrocare wand to connect the two portals. Central Compartment Intervention: Synovectomy was performed. Flap was debrided. With the assistance of the wand the acatabular rim was then exposed between 10~ and 3~Oclock and 2-4~mm of "pincer" bone was removed using a motorized danny. The labrum was then repaired~with 4~peek anchors, achieving good anatomical rim fixation. Microfractures were applied to the area where the bone was exposed from missing cartilage. ~ LT was treated with RF wand to shrink and stabilize reactive tissue.~ Peripheral Compartment Intervention: A box-shaped capsulotomy was made with the assistance of SpeedStitch traction suture. This allowed traction on the capsule and a good view of the femoral neck with smaller capsulotomy. The articular margin where sphericity was lost was marked with the Arthrocare wand under X-ray control. Bone lateral to this was removed with the the danny. Portals were switched to deal with the superior headneck junction. Care was taken not to stray posterior and laterally in view of the location of the retinacular vessels. The cam lesion was addressed from 12~to 6~O'clock. A dynamic impingement test was undertaken and vision with 90 of flexion and 5 of internal rotation to confirm that there was no bony or soft tissue impingement or deformation of the labrum. ~Good clearance was obtained with good labral seal. The joint was thoroughly irrigated of any loose debris and the anterior capsule was repaired with 2~No.1 vicryl stitches, closing 50% of the capsulotomy. The skin was then closed with Nylon. Padded dressing was applied. After surgery, Earnest~moved both lower limbs and had no NV compromise. Specimen - none Bleeding - 10ml Complication - none Evaluation under Anesthesia: Pre: IR 90 ER 90 ABD Flexion Right 5 40 35 90 Left 5 40 35 90 Post op instructions: 1. Non~weight bearing crutches for 6~weeks 2. Pain killers as prescribed 3. Follow up visit with me, as scheduled, where a rehab protocol would be discussed 4. Avoid hip external rotation for 4 weeks 5. ~~25 days of NSAIDS need to be taken in order to prevent the possible formation of HO ~ Kind regards, ~~ Dr. Brayan Gautam
[2017-06-22] MEDS: OXYCODONE/APAP 5/325 TAB PO PRN (19:21)
[2017-06-22] MEDS: ONDANSETRON 4 MG/2 ML VIAL IVP PRN (19:52)
--- NOTE | 2017-06-22 20:10 | POSTANESTH ---
Post Anesthetic Evaluation Cardiovascular Status: Normal, Stable Respiratory Status: Normal, Stable Level of Consciousness/Mental Status: Can Participate in Eval Pain Control: Inadeq, Add Tx Required Nausea/Vomiting Control: Adequate, Prn Tx Ordered Complications Possibly Related to Anesthesia: None Noted (pt complains of left shoulder and bicep pain similar to his previous shoulder dislocations. I have advised to give valium for possible muscle spasm following prolonged procedure and have requested the nurse call the primary Orthopedic service for further evaluation of the MSK pain. I called back after 30 min and confirmed the patient was significantly more comfortable following the Valium and that the orthopedic service had been contacted and did not have futher recommendations.)
[2017-06-22] MEDS ORDERED: traZODone 50 MG TAB PO SCH (21:00)
[2017-06-22] MEDS: NAPROXEN SODIUM 220 MG TAB PO SCH (21:07)
[2017-06-23] MEDS: ONDANSETRON 4 MG/2 ML VIAL IVP PRN ×2 (00:18→10:00)
[2017-06-23] MEDS: OXYCODONE/APAP 5/325 TAB PO PRN ×5 (01:10→18:17)
--- NOTE | 2017-06-23 09:08 | POSTANESTH ---
Post Anesthetic Evaluation Cardiovascular Status: Normal, Stable Respiratory Status: Normal, Stable Level of Consciousness/Mental Status: Can Participate in Eval Pain Control: Adequate, Prn Tx Ordered Nausea/Vomiting Control: Adequate, Prn Tx Ordered Complications Possibly Related to Anesthesia: None Noted (pt seen on floor to f/ u left shoulder pain. Pain is improving, but still has point tenderness to clivicle and bicep areas. Pt says this pain is similar to previous shoulder dislocations on that side, but he feels like his shoulder is in socket now. have given pt my business card with instructions to contact as needed.)
[2017-06-23] MEDS: NAPROXEN SODIUM 220 MG TAB PO SCH ×2 (09:54→15:56)
--- NOTE | 2017-06-23 14:42 | SOAPPROG ---
SHANI Progress Note Assessment/Plan: Assessment: 1 day post op Left Hip scope Plan: will keep him another night for pain PT: up on stationary bike twice a day ambulate Non-weight bearing LLE 06/23/17 14:39 Subjective: Earnest reports having numbness below his left knee and is concerned about falling. He is continues to have increased pain and he feels the need to stay another night. He denies any cp, no nausea or sob. Objective: Vital Signs Temp Pulse Resp BP Pulse Ox 36.7 C 78 15 97/62 L 96 06/23/17 11:13 06/23/17 11:13 06/23/17 11:13 06/23/17 11:13 06/23/17 11:13 06/22/17 06/23/17 06/24/17 05:59 05:59 05:59 Intake Total 2900 500 Output Total 1125 625 Balance 1775 -125 Well appearing in NAD Left hip: dressings clean dry intact edema full sensation in thigh but reported numbness below knee to ankle FULL ROM of foot and ankle - Pending Discharge Pending Discharge Within 24 Hours: Yes Pending Discharge Date: 06/24/17 Pending Discharge Time: 11:00 ICD10 Worksheet Patient Problems: Problems Problem Status Onset Post-operative pain Acute - ICD10 Problem Qualifiers (1) Post-operative pain
[2017-06-23 15:47] VITALS: BP 108/64
--- NOTE | 2017-06-23 15:55 | ASMTCMCOM ---
CM Note CM Note Notes: Pt is POD#1 left hip scope- see op notes. Discussed w/RN. Pt will be NWB, on crutches for 6 weeks. He lives at home w/his family. Awating PT rec. Date Signed: 06/23/2017 03:54 PM Electronically Signed By:Ginger Tello RN
--- NOTE | 2017-06-26 14:04 | GDS ---
[f rep st] DISCHARGE SUMMARY The patient underwent a left hip arthroscopy with debridement of loose cartilage flap and microfractu re with cam resection synovectomy and capsular repair. He was kept overnight for postoperative pain control. He was given IV push and p.o. analgesia and well pain managed. On his 1st postoperative da y, he felt good enough to go home, and he was discharged in good condition. He will be nonweightbear ing in his left lower extremity for 6 weeks' time. He was sent home with prescriptions of oxycodone, Valium, Zofran, and naproxen to be taken as needed. The naproxen will be taken until he is finished with this prescription for heterotrophic ossification. He will follow up in the clinic 2 weeks post operatively. He was discharged in good condition. /[id number]/MODL
== END 2017-06-23 19:00 | disposition home or self-care (01) ==
LOC: FSGY 09:47 → F3N 16:49
PROVIDERS: ADMIT Orthopaedic Surgery Sports Medicine; ATTEND Orthopaedic Surgery Sports Medicine
PROC: 0SQB4ZZ Repair Left Hip Joint, Percutaneous Endoscopic Approach (ICD-10-PCS; principal; 2017-06-22 11:00)
PROC: 0SBB4ZZ Excision of Left Hip Joint, Percutaneous Endoscopic Approach (ICD-10-PCS; principal; 2017-06-22 11:00)
DX: G89.18 Other acute postprocedural pain (principal); M25.852 Other specified joint disorders, left hip; M16.12 Unilateral primary osteoarthritis, left hip; M65.9 Synovitis and tenosynovitis, unspecified; M25.512 Pain in left shoulder
CPT/HCPCS: 29914; 29916; 76001; G0378; C1713; J0171; J0690; J1100; J1885; J2250; J2405; J2704; J3010; J3360

== ENCOUNTER 2017-07-16 16:51 | Emergency (ER) | payer OTHER ==
[2017-07-16 17:00] VITALS: BP 121/83
--- NOTE | 2017-07-16 17:08 | EDPHY ---
H & P Stated Complaint: med reaction Time Seen by Provider: 07/16/17 16:59 HPI/ROS: CHIEF COMPLAINT: Contrast reaction HISTORY OF PRESENT ILLNESS: The patient presents to the ED with rash and dyspnea following the administration of IV contrast in the radiology suite. The patient was treated with Benadryl and prednisone prior to arrival. The patient does complain of some tightness in his throat but denies additional acute complaints. REVIEW OF SYSTEMS: A comprehensive 10 point review of systems is otherwise negative aside from elements mentioned in the history of present illness. Source: Patient Exam Limitations: No limitations - Personal History Current Tetanus/Diphtheria Vaccine: Yes Current Tetanus Diphtheria and Acellular Pertussis (TDAP): Yes - Medical/Surgical History Hx Asthma: No Hx Chronic Respiratory Disease: No Hx Diabetes: No Hx Cardiac Disease: No Hx Renal Disease: No Hx Cirrhosis: No Hx Alcoholism: No Hx HIV/AIDS: No Hx Splenectomy or Spleen Trauma: No Other PMH: ortho surgeries, sinus surgeries - Social History Smoking Status: Never smoked - Physical Exam Exam: General Appearance: Alert, no distress Eyes: Pupils equal and round no pallor or injection ENT, Mouth: Mucous membranes moist Respiratory: There are no retractions, lungs are clear to auscultation Cardiovascular: Regular rate and rhythm Gastrointestinal: Abdomen is soft and nontender, no masses, bowel sounds normal Neurological: 5/5 strength all 4 extremities, cranial nerves 2-12 intact Skin: Mild erythematous reaction Musculoskeletal: Neck is supple nontender Extremities: symmetrical, full range of motion Constitutional: Initial Vital Signs Temperature (C) 36.8 C 07/16/17 16:51 Heart Rate 78 07/16/17 16:51 Respiratory Rate 16 07/16/17 16:51 Blood Pressure 121/83 H 07/16/17 16:51 O2 Sat (%) 94 07/16/17 16:51 O2 Delivery Mode Room Air Allergies/Adverse Reactions: Iodinated Contrast- Oral and IV Dye Allergy (Verified 07/16/17 16:57) Home Medications: Medication Instructions Recorded RX: Diazepam [Valium 2 MG (*)] 2 mg PO Q6HRS PRN tab 06/23/17 RX: Naproxen Sodium [Aleve 220 MG 220 mg PO TID tab 06/23/17 (*)] RX: Ondansetron Odt [Zofran Odt 4 4 mg PO Q6HRS PRN tab 06/23/17 mg (*)] RX: oxyCODONE/APAP 5/325 [Percocet 2 tab PO Q4HRS PRN tab 06/23/17 5/325 (*)] Medical Decision Making ED Course/Re-evaluation: The patient presents to the emergency department after a mild contrast reaction. He received Benadryl and Solu-Medrol prior to arrival. The patient has no evidence of angioedema or upper airway swelling. The patient was observed in the emergency department for 40 min without any development of a more significant reaction. The patient will be discharged home with instructions to return to the ED for any rebound symptoms. He is advised to avoid IV contrast in the future. Departure - Departure Disposition: Home, Routine, Self-Care Clinical Impression: Allergic reaction Condition: Good Instructions: Urticaria (ED) Additional Instructions: 1. Benadryl 50 mg every 6 hr as needed for rash. 2. Return to the ED for the development of any difficulty breathing, worsening symptoms or other concerns.
== END 2017-07-16 17:34 | disposition home or self-care (01) ==
DX: T78.40XA Allergy, unspecified, initial encounter (principal)

== ENCOUNTER → 2017-07-16 | Outpatient (CLI) | payer OTHER ==
[~2017-07-16] MED LIST: IOPAMIDOL (ISOVUE 370) 100 ML BTL IV ONE; methylPREDNISolone SOD SUCC 125 MG/2 ML VIAL ONE
== END ==
LOC: FIMAGING 15:45
PROVIDERS: ATTEND Psychiatry & Neurology Neurology
DX: G44.82 Headache associated with sexual activity (principal); G44.84 Primary exertional headache; J01.00 Acute maxillary sinusitis, unspecified
CPT/HCPCS: J1200; J2930; Q9967